=== PATIENT | female | born 1985 | race Caucasian/White ===

== ENCOUNTER 2016-12-29 22:05 | Emergency (ER) | payer BC, MEDICAID ==
[~2016-12-29] VITALS: Ht 165.1 cm; Wt 57.2 kg
[2016-12-29 22:25] VITALS: BP 125/81
[2016-12-29 23:08] LABS: APPEARANCE,URINE CLOUDY (CLEAR); BILIRUBIN,URINE NEGATIVE (NEGATIVE); BLOOD, URINE 2+ Ery/uL (NEGATIVE); COLOR,URINE YELLOW (YELLOW); KETONES,URINE NEGATIVE (NEGATIVE); LEUKOCYTE ESTERASE ,URINE 2+ (NEGATIVE); NITRITE, URINE POSITIVE (NEGATIVE); PH,URINE 6.5 (5.0-8.0); PROTEIN,URINE 2+ mg/dl (NEGATIVE); UGLUCOSE NEGATIVE (NEGATIVE); UROBILINOGEN,URINE 0.2 EU/dL (0.2)
[2016-12-29 23:12] LABS: PREGNANCY TEST URINE QUAL NEGATIVE (NEGATIVE)
[2016-12-29 23:14] LABS: WBC,URINE TOO NUMEROUS TO COUN /HPF (0-3)
[2016-12-29 23:15] LABS: ADD URINE CULTURE YES; BACTERIA,URINE 3+ /HPF (None Seen); SQUAMOUS EPITHELIAL CELL,UR Moderate /HPF (None Seen)
[2016-12-29] MEDS ORDERED: NITROFURANTOIN/NITROFURAN MAC 100 MG CAPSULE ONE (23:18)
[2016-12-29] MEDS ORDERED: IBUPROFEN 400 MG TABLET ONE (23:18)
[2016-12-29] MEDS ORDERED: PHENAZOPYRIDINE HCL 200 MG TABLET ONE (23:18)
[2016-12-29] MEDS ORDERED: PHENAZOPYRIDINE HCL 200 MG TABLET PO ONE (23:30)
[2016-12-29] MEDS ORDERED: NITROFURANTOIN/NITROFURAN MAC 100 MG CAPSULE PO ONE (23:30)
[2016-12-29] MEDS ORDERED: IBUPROFEN 400 MG TABLET PO ONE (23:30)
[2016-12-30] MEDS ORDERED: LORAZEPAM INJ 2 MG/ML VIAL IV ONE
== END 2016-12-29 23:41 | disposition home or self-care (01) ==
LOC: ER 22:06
DX: N30.90 Cystitis, unspecified without hematuria (principal)
CPT/HCPCS: 81000-TC; 84703-TC; 87086-TC; 87186-TC; A4606; Z7610

== ENCOUNTER 2018-03-23 22:58 | Emergency (ER) | payer BC ==
[~2018-03-23] VITALS: Ht 165.1 cm; Wt 54.4 kg
[2018-03-23 23:05] VITALS: BP 129/72
[2018-03-24] MEDS ORDERED: HYDROCODONE/APAP 5/325MG 1 EACH TABLET PO ONE
[2018-03-24] MEDS ORDERED: HYDROCODONE/APAP 5/325MG 1 EACH TABLET ONE (00:13)
[2018-03-24] MEDS ORDERED: TDAP [DIPH/PERTUSSIS/TET] 0.5 ML VIAL IM ONE ×2 (00:13)
--- NOTE | 2018-03-24 00:19 | NUR ---
PATIENT MEDICATED ORDERED
[2018-03-24] MEDS ORDERED: MISCELLANEOUS MED 1 EA EA XX ONE (00:30)
== END 2018-03-24 00:50 | disposition home or self-care (01) ==
LOC: ER 23:00
DX: S61.002A Unspecified open wound of left thumb without damage to nail, initial encounter (principal); W26.0XXA Contact with knife, initial encounter; Y93.G3 Activity, cooking and baking; Y92.89 Other specified places as the place of occurrence of the external cause; Y99.8 Other external cause status
CPT/HCPCS: 99283; A4606; A6402; Z7610; 90715